=== PATIENT | female | born 1990 | race African-American/Black ===

== ENCOUNTER 2016-11-15 22:33 | Emergency (ER) | payer OTHER ==
[2016-11-16] MEDS ORDERED: PHENAZOPYRIDINE 100 MG TAB As Ordered ONE (02:02)
[2016-11-16] MEDS ORDERED: NITROFURANTOIN (MACROBID) 100 MG CAP As Ordered ONE (02:02)
[2016-11-16] MEDS ORDERED: IBUPROFEN 600 MG TAB As Ordered ONE (02:02)
--- NOTE | 2016-11-16 02:13 | EDDOCDS ---
Physician Documentation [facility] Name: Harvey Domingo Age: 26 yrs Sex: Female : 1990 Arrival Date: 11/15/2016 Time: 22:33 Bed I2 / M2 Private MD: Other - Complete Info On Cds Disposition: 11/16/16 02:08 Discharged to Home/Self Care. Impression: Urinary tract infection, site not specified. - Condition is Stable. - Discharge Instructions: Urinary Tract Infection. - Prescriptions for Pyridium 200 mg Oral Tablet - take 1 tablet by ORAL route every 8 hours for 3 days; 9 tablet. Macrobid 100 mg Oral Capsule - take 100 milligram by ORAL route every 12 hours for 10 days; 20 capsule. - Medication Reconciliation, Local Pharmacy Hours form. - Follow up: Private Physician; When: 1 - 2 days; Reason: Recheck today's complaints, Continuance of care. - Problem is new. - Symptoms have improved. - Notes: USE MEDICATIONS INSTRUCTED, FOLLOW UP WITH YOUR DOCTOR IN 1-2 DAYS, RETURN TO THE ER IF THE SYMPTOMS WORSEN OR BECOME CONCERNING Historical: - Allergies: no known allergies; - Home Meds: 1. none - PMHx: none; - PSHx: Ovarian Cystectomy- Left; - Social history: Smoking status: Patient states was never smoker of tobacco. No barriers to communication noted, The patient speaks fluent Sierra Leonean, Speaks appropriately for age. - Family history: Not pertinent. - : The pt / caregiver states he / she is not on anticoagulants. Home medication list is obtained from the patient. - Exposure Risk Screening:: None identified. 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 5 in. (165.10 cm) (R); Pain 6/10; 11/16 02:08 BP 120 / 78; Pulse 90; Resp 18; Temp 99.0(O); Pulse Ox 98% on R/A; Pain 2/10; jmb 11/15 22:35 Body Mass Index 22.46 (61.23 kg, 165.10 cm) gr2 MDM: 01:12 UCG by Nursing ordered. jmb 01:12 UA Ordered. EDMS 01:12 Urine Culture Ordered. EDMS 01:55 UA Reviewed. ck7 02:00 Nitrofurantoin 100 mg PO once ordered. ck7 02:00 Phenazopyridine 200 mg PO once ordered. ck7 02:00 Ibuprofen 600 mg PO once ordered. ck7 02:07 Financial registration complete. hs2 Point of Care Testing: Urine : 01:25 hCG Reading: Negative; Control Reading: Positive; sergey Ranges: Administered Medications: 02:04 Drug: Nitrofurantoin 100 mg [nitrofurantoin macrocrystal 50 mg capsule (2 caps)] Route: jmb PO; 02:04 Drug: Phenazopyridine 200 mg [phenazopyridine 100 mg tablet (2 tabs)] Route: PO; sergey 02:04 Drug: Ibuprofen 600 mg [ibuprofen 600 mg tablet (1 tabs)] Route: PO; sergey Signatures: Dispatcher [employer] Marilyn Garcia,RN Mauri Baker, RPA-C RPA-Cck7 Zoran Espinoza RN RN jmb Stanton, Hillary, Reg Reg hs2 MTDD
--- NOTE | 2016-11-16 02:14 | EDDOCDS ---
Nurse's Notes [facility] Name: Harvey Domingo Age: 26 yrs Sex: Female : 1990 Arrival Date: 11/15/2016 Time: 22:33 Bed I2 / M2 Private MD: Other - Complete Info On Cds Diagnosis: Urinary tract infection, site not specified Presentation: 11/15 22:38 Presenting complaint: Patient states: abdominal pain since yesterday. denies n/v/d. pml suprapubic pain - reports pain with urination. Risk factors: the patient reports no vaginal bleeding. Adult Sepsis Screening: The patient does not have new or worsening altered mentation. Patient's respiratory rate is less than 22. Systolic blood pressure is greater than 100. Patient has a qSOFA score of. Suicide/Homicide risk assessment- the patient denies having any suicidal and/or homicidal ideations and does not present with any other emotional, behavioral or mental health complaints. Status: The patient is a dependent. Transition of care: patient was not received from another setting of care. 22:38 Acuity: ARISTIDES Level 4 pml 22:38 Method Of Arrival: Walkin/Carried/Asstd pml Triage Assessment: 22:40 General: Appears in no apparent distress, Behavior is appropriate for age, cooperative. pml Pain: Location: suprapubic area Pain currently is 10 out of 10 on a pain scale. Pt Declines HIV testing. 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 none - PMHx: none; - PSHx: Ovarian Cystectomy- Left; - Social history: Smoking status: Patient states was never smoker of tobacco. No barriers to communication noted, The patient speaks fluent Armenian, Speaks appropriately for age. - Family history: Not pertinent. - : The pt / caregiver states he / she is not on anticoagulants. Home medication list is obtained from the patient. - Exposure Risk Screening:: None identified. Screenin/17 01:25 Screening information is obtained from the patient. Fall risk: No risks identified. jmb Assistance ADL's: requires no assistance with activities of daily living. Abuse/DV Screen: The patient / caregiver reports he/she is: not in a situation that causes fear, pain or injury. Nutritional screening: No deficits noted. home support is adequate. 02:08 Advance Directives: Currently, there is no health care proxy. There is no active DNR jmb order. There is no living will. There is no Power of Atmospheric Sciences Professor. Assessment: 01:25 General: Appears in no apparent distress, comfortable, Behavior is appropriate for age, jmb cooperative. Neurological: Level of Consciousness is awake, alert, obeys commands, Oriented to person, place, time, Mini Shifter are equal bilaterally Speech is normal, Facial symmetry appears normal, Facial symmetry: tongue is midline. Cardiovascular: Capillary refill < 3 seconds Heart tones present Pulses are all present. Rhythm is regular. Respiratory: Airway is patent Respiratory effort is even, unlabored, Respiratory pattern is regular, symmetrical, Breath sounds are clear bilaterally. GI: Abdomen is non- distended Bowel sounds present X 4 quads. Abd is soft X 4 quads. Derm: Skin is normal. Musculoskeletal: Range of motion intact in all extremities. 02:08 General: Patient instructed on discharge instructions. Patient asked if there were any b questions regarding discharge, patient stated no. Patient signed discharge instructions. Patient discharged in stable condition. . Vital Signs: 11/15 22:35 BP 116 / 73; Pulse 95; Resp 18 S; Temp 99.1(O); Pulse Ox 98% on R/A; Weight 61.23 kg gr2 (R); Height 5 ft. 5 in. (165.10 cm) (R); Pain 6/10; 11/16 02:08 BP 120 / 78; Pulse 90; Resp 18; Temp 99.0(O); Pulse Ox 98% on R/A; Pain 2/10; jmb 11/15 22:35 Body Mass Index 22.46 (61.23 kg, 165.10 cm) gr2 Vitals: 11/15 22:35 Log In Time: November 15, 2016 at 22:35. gr2 ED Course: 22:35 Patient visited by Jose Fuentes. gr2 22:35 Other - Complete Info On Cds is Private Physician. gr2 22:35 Patient moved to Waiting gr2 22:37 Patient visited by Jose Fuentes. gr2 22:37 Patient moved to Pre RCE gr2 22:39 Triage Initiated pml 22:40 Patient visited by Marilyn Moran RN. pml 11/16 01:09 Patient moved to I2 / M2 jmb 01:10 Patient visited by Edith Wang LPN. cp1 01:23 Urine Culture Sent. jmb 01:23 UA Sent. jmb 01:25 The patient / caregiver is instructed regarding the plan of care and ED course. jmb 01:26 Patient visited by Zoran Espinoza RN. jmb 01:36 Mauri Tello RPA-C is PHCP. ck7 01:36 Edison Stoll DO is Attending Physician. ck7 01:36 Patient visited by Mauri Tello RPA-C. ck7 02:08 No IV's were initiated during this patient's visit. No procedures done that require b assistance. Administered Medications: 02:04 Drug: Nitrofurantoin 100 mg [nitrofurantoin macrocrystal 50 mg capsule (2 caps)] Route: jmb PO; 02:04 Drug: Phenazopyridine 200 mg [phenazopyridine 100 mg tablet (2 tabs)] Route: PO; b 02:04 Drug: Ibuprofen 600 mg [ibuprofen 600 mg tablet (1 tabs)] Route: PO; [place] Point of Care Testing: Urine : 01:25 hCG Reading: Negative; Control Reading: Positive; [place] Ranges: Order Results: Lab Order: UA; SPEC'M 11/16/16 01:17 Test: APPEARANCE, URINE; Value: HAZY; Range: CLEAR; Status: F Test: COLOR, URINE; Value: YELLOW; Range: YELLOW; Status: F Test: PH,URINE; Value: 5.0; Range: 5.0-9.0; Units: UNITS; Status: F Test: SPECIFIC GRAVITY URINE AUTO; Value: 1.023; Range: 1.002-1.035; Status: F Test: PROTEIN, URINE AUTO; Value: NEGATIVE; Range: NEGATIVE; Units: mg/dL; Status: F Test: GLUCOSE, URINE (UA) AUTO; Value: NEGATIVE; Range: NEGATIVE; Units: mg/dL; Status: F Test: KETONE, URINE AUTO; Value: 1+; Range: NEGATIVE; Abnormal: Above high normal; Units: mg/dL; Status: F Test: UROBILINOGEN, URINE AUTO; Value: 0.2; Range: 0.0-2.0; Units: mg/dL; Status: F Test: BILIRUBIN, URINE AUTO; Value: NEGATIVE; Range: NEGATIVE; Status: F Test: NITRITE, URINE AUTO; Value: NEGATIVE; Range: NEGATIVE; Status: F Test: LEUKOCYTE ESTERASE, URINE AUTO; Value: 3+; Range: NEGATIVE; Abnormal: Above high normal; Status: F Test: BLOOD, URINE BLOOD; Value: NEGATIVE; Range: NEGATIVE; Status: F Test: WBC, URINE AUTO; Value: 19; Range: 0-3; Abnormal: Above high normal; Units: /HPF; Status: F Test: RBC, URINE AUTO; Value: 6; Range: 0-3; Abnormal: Above high normal; Units: /HPF; Status: F Test: BACTERIA, URINE AUTO; Value: NEGATIVE; Range: NEGATIVE; Status: F Test: SQUAMOUS EPITHELIAL CELL UR AU; Value: 6; Range: 0-6; Units: /HPF; Status: F Test: MUCUS, URINE; Value: LARGE; Range: NEGATIVE; Status: F Test: HYALINE CAST, URINE AUTO; Value: 0; Range: 0-1; Units: /LPF; Status: F Outcome: 02:08 Discharge ordered by Provider. ck7 02:08 Discharge Assessment: Patient awake, alert and oriented x 3. No cognitive and/or jmb functional deficits noted. Patient verbalized understanding of disposition instructions. Patient awake and alert. obeys commands, Oriented to person, place and time. Patient verbalized understanding of disposition instructions. Patient has no functional deficits. patient administered narcotics - no. The following High Risk Discharge criteria are identified: None. Discharged to home ambulatory, with significant other. Condition: stable. Discharge instructions given to patient, Instructed on discharge instructions, follow up and referral plans. medication usage, Demonstrated understanding of instructions, medications, Pt was receptive of discharge instructions/ teaching. Prescriptions given X 1. No special radiology studies were completed. Property sent home with patient. 02:12 Patient left the ED. sergey Signatures: Edith Wang LPN LPN cp1 Marilyn Moran,RN RN Mauri Draper, RPA-C RPA-Cck7 Jose Fuentes gr2 Zoran Espinoza RN RN jmb MTDD
--- NOTE | 2016-11-18 03:13 | EDDOCDS ---
Physician Documentation [facility] Name: Harvey Domingo Age: 26 yrs Sex: Female : 1990 Arrival Date: 11/15/2016 Time: 22:33 Bed I2 / M2 Private MD: Other - Complete Info On Cds Disposition: 11/16/16 02:08 Discharged to Home/Self Care. Impression: Urinary tract infection, site not specified. - Condition is Stable. - Discharge Instructions: Urinary Tract Infection. - Prescriptions for Pyridium 200 mg Oral Tablet - take 1 tablet by ORAL route every 8 hours for 3 days; 9 tablet. Macrobid 100 mg Oral Capsule - take 100 milligram by ORAL route every 12 hours for 10 days; 20 capsule. - Medication Reconciliation, Local Pharmacy Hours form. - Follow up: Private Physician; When: 1 - 2 days; Reason: Recheck today's complaints, Continuance of care. - Problem is new. - Symptoms have improved. - Notes: USE MEDICATIONS INSTRUCTED, FOLLOW UP WITH YOUR DOCTOR IN 1-2 DAYS, RETURN TO THE ER IF THE SYMPTOMS WORSEN OR BECOME CONCERNING Historical: - Allergies: no known allergies; - Home Meds: 1. none - PMHx: none; - PSHx: Ovarian Cystectomy- Left; - Social history: Smoking status: Patient states was never smoker of tobacco. No barriers to communication noted, The patient speaks fluent Palestinian, Speaks appropriately for age. - Family history: Not pertinent. - : The pt / caregiver states he / she is not on anticoagulants. Home medication list is obtained from the patient. - Exposure Risk Screening:: None identified. 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 5 in. (165.10 cm) (R); Pain 6/10; 11/16 02:08 BP 120 / 78; Pulse 90; Resp 18; Temp 99.0(O); Pulse Ox 98% on R/A; Pain 2/10; jmb 11/15 22:35 Body Mass Index 22.46 (61.23 kg, 165.10 cm) gr2 MDM: 01:12 UCG by Nursing ordered. jmb 01:12 UA Ordered. EDMS 01:12 Urine Culture Ordered. EDMS 01:55 UA Reviewed. ck7 02:00 Nitrofurantoin 100 mg PO once ordered. ck7 02:00 Phenazopyridine 200 mg PO once ordered. ck7 02:00 Ibuprofen 600 mg PO once ordered. ck7 02:07 Financial registration complete. hs2 03:44 [facility] Payment Agreement was scanned into [employer] and attached to record. hs2 09:55 T-Sheet-- Draft Copy was scanned into [employer] and attached to record. bry Point of Care Testing: Urine : 01:25 hCG Reading: Negative; Control Reading: Positive; sergey Ranges: Administered Medications: 02:04 Drug: Nitrofurantoin 100 mg [nitrofurantoin macrocrystal 50 mg capsule (2 caps)] Route: jmb PO; 02:04 Drug: Phenazopyridine 200 mg [phenazopyridine 100 mg tablet (2 tabs)] Route: PO; sergey 02:04 Drug: Ibuprofen 600 mg [ibuprofen 600 mg tablet (1 tabs)] Route: PO; sergey Signatures: Dispatcher [employer] EDMS Glenda Weiner, Reg Reg gb Marilyn Moran,RN Mauri Baker RPA-C RPA-Cck7 Zoran Espinoza RN RN jmb Romy Mathis, Reg Reg hs2 The chart was reviewed and I authenticate all verbal orders and agree with the evaluation and treatment provided.Attachments: 03:44 [facility] Payment Agreement hs2 09:55 T-Sheet-- Draft Copy gb Chart Complete MTDD
--- NOTE | 2016-11-18 03:13 | EDDOCDS ---
Nurse's Notes [facility] Name: Harvey Domingo Age: 26 yrs Sex: Female : 1990 Arrival Date: 11/15/2016 Time: 22:33 Bed I2 / M2 Private MD: Other - Complete Info On Cds Diagnosis: Urinary tract infection, site not specified Presentation: 11/15 22:38 Presenting complaint: Patient states: abdominal pain since yesterday. denies n/v/d. pml suprapubic pain - reports pain with urination. Risk factors: the patient reports no vaginal bleeding. Adult Sepsis Screening: The patient does not have new or worsening altered mentation. Patient's respiratory rate is less than 22. Systolic blood pressure is greater than 100. Patient has a qSOFA score of. Suicide/Homicide risk assessment- the patient denies having any suicidal and/or homicidal ideations and does not present with any other emotional, behavioral or mental health complaints. Status: The patient is a dependent. Transition of care: patient was not received from another setting of care. 22:38 Acuity: ARISTIDES Level 4 pml 22:38 Method Of Arrival: Walkin/Carried/Asstd pml Triage Assessment: 22:40 General: Appears in no apparent distress, Behavior is appropriate for age, cooperative. pml Pain: Location: suprapubic area Pain currently is 10 out of 10 on a pain scale. Pt Declines HIV testing. 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 none - PMHx: none; - PSHx: Ovarian Cystectomy- Left; - Social history: Smoking status: Patient states was never smoker of tobacco. No barriers to communication noted, The patient speaks fluent Setswana, Speaks appropriately for age. - Family history: Not pertinent. - : The pt / caregiver states he / she is not on anticoagulants. Home medication list is obtained from the patient. - Exposure Risk Screening:: None identified. Screenin/17 01:25 Screening information is obtained from the patient. Fall risk: No risks identified. jmb Assistance ADL's: requires no assistance with activities of daily living. Abuse/DV Screen: The patient / caregiver reports he/she is: not in a situation that causes fear, pain or injury. Nutritional screening: No deficits noted. home support is adequate. 02:08 Advance Directives: Currently, there is no health care proxy. There is no active DNR jmb order. There is no living will. There is no Power of Call Centre Supervisor. Assessment: 01:25 General: Appears in no apparent distress, comfortable, Behavior is appropriate for age, jmb cooperative. Neurological: Level of Consciousness is awake, alert, obeys commands, Oriented to person, place, time, Swimming Teacher are equal bilaterally Speech is normal, Facial symmetry appears normal, Facial symmetry: tongue is midline. Cardiovascular: Capillary refill < 3 seconds Heart tones present Pulses are all present. Rhythm is regular. Respiratory: Airway is patent Respiratory effort is even, unlabored, Respiratory pattern is regular, symmetrical, Breath sounds are clear bilaterally. GI: Abdomen is non- distended Bowel sounds present X 4 quads. Abd is soft X 4 quads. Derm: Skin is normal. Musculoskeletal: Range of motion intact in all extremities. 02:08 General: Patient instructed on discharge instructions. Patient asked if there were any b questions regarding discharge, patient stated no. Patient signed discharge instructions. Patient discharged in stable condition. . Vital Signs: 11/15 22:35 BP 116 / 73; Pulse 95; Resp 18 S; Temp 99.1(O); Pulse Ox 98% on R/A; Weight 61.23 kg gr2 (R); Height 5 ft. 5 in. (165.10 cm) (R); Pain 6/10; 11/16 02:08 BP 120 / 78; Pulse 90; Resp 18; Temp 99.0(O); Pulse Ox 98% on R/A; Pain 2/10; jmb 11/15 22:35 Body Mass Index 22.46 (61.23 kg, 165.10 cm) gr2 Vitals: 11/15 22:35 Log In Time: November 15, 2016 at 22:35. gr2 ED Course: 22:35 Patient visited by Jose Fuentes. gr2 22:35 Other - Complete Info On Cds is Private Physician. gr2 22:35 Patient moved to Waiting gr2 22:37 Patient visited by Jose Fuentes. gr2 22:37 Patient moved to Pre RCE gr2 22:39 Triage Initiated pml 22:40 Patient visited by Marilyn Moran RN. pml 11/16 01:09 Patient moved to I2 / M2 jmb 01:10 Patient visited by Edith Wang LPN. cp1 01:23 Urine Culture Sent. jmb 01:23 UA Sent. jmb 01:25 The patient / caregiver is instructed regarding the plan of care and ED course. jmb 01:26 Patient visited by Zoran Espinoza RN. jmb 01:36 Mauri Tello RPA-C is PHCP. ck7 01:36 Edison Stoll DO is Attending Physician. ck7 01:36 Patient visited by Mauri Tello RPA-C. ck7 02:08 No IV's were initiated during this patient's visit. No procedures done that require jmb assistance. 03:44 [facility] [place] was scanned into [employer] and attached to record. hs2 03:45 Patient visited by Romy Mathis, Reg. hs2 03:49 Patient name changed from Nykia\S\L\S\Jose L\S\ to Nykia\S\Erika\S\Jose L. EDMS 09:55 T-Sheet-- Draft Copy was scanned into [employer] and attached to record. gb Administered Medications: 02:04 Drug: Nitrofurantoin 100 mg [nitrofurantoin macrocrystal 50 mg capsule (2 caps)] Route: jmb PO; 02:04 Drug: Phenazopyridine 200 mg [phenazopyridine 100 mg tablet (2 tabs)] Route: PO; jmb 02:04 Drug: Ibuprofen 600 mg [ibuprofen 600 mg tablet (1 tabs)] Route: PO; b Point of Care Testing: Urine : 01:25 hCG Reading: Negative; Control Reading: Positive; b Ranges: Order Results: Lab Order: UA; SPEC'M 11/16/16 01:17 Test: APPEARANCE, URINE; Value: HAZY; Range: CLEAR; Status: F Test: COLOR, URINE; Value: YELLOW; Range: YELLOW; Status: F Test: PH,URINE; Value: 5.0; Range: 5.0-9.0; Units: UNITS; Status: F Test: SPECIFIC GRAVITY URINE AUTO; Value: 1.023; Range: 1.002-1.035; Status: F Test: PROTEIN, URINE AUTO; Value: NEGATIVE; Range: NEGATIVE; Units: mg/dL; Status: F Test: GLUCOSE, URINE (UA) AUTO; Value: NEGATIVE; Range: NEGATIVE; Units: mg/dL; Status: F Test: KETONE, URINE AUTO; Value: 1+; Range: NEGATIVE; Abnormal: Above high normal; Units: mg/dL; Status: F Test: UROBILINOGEN, URINE AUTO; Value: 0.2; Range: 0.0-2.0; Units: mg/dL; Status: F Test: BILIRUBIN, URINE AUTO; Value: NEGATIVE; Range: NEGATIVE; Status: F Test: NITRITE, URINE AUTO; Value: NEGATIVE; Range: NEGATIVE; Status: F Test: LEUKOCYTE ESTERASE, URINE AUTO; Value: 3+; Range: NEGATIVE; Abnormal: Above high normal; Status: F Test: BLOOD, URINE BLOOD; Value: NEGATIVE; Range: NEGATIVE; Status: F Test: WBC, URINE AUTO; Value: 19; Range: 0-3; Abnormal: Above high normal; Units: /HPF; Status: F Test: RBC, URINE AUTO; Value: 6; Range: 0-3; Abnormal: Above high normal; Units: /HPF; Status: F Test: BACTERIA, URINE AUTO; Value: NEGATIVE; Range: NEGATIVE; Status: F Test: SQUAMOUS EPITHELIAL CELL UR AU; Value: 6; Range: 0-6; Units: /HPF; Status: F Test: MUCUS, URINE; Value: LARGE; Range: NEGATIVE; Status: F Test: HYALINE CAST, URINE AUTO; Value: 0; Range: 0-1; Units: /LPF; Status: F Lab Order: Urine Culture; SPEC'M 11/16/16 01:17 Test: URINE CULTURE; Value: URINE CULTURE RESULT; Status: F Test: URINE CULTURE; Value: NO GROWTH CLINICAL SIGNIFICANCE 2 OR MORE ORGANISMS; Status: F Outcome: 02:08 Discharge ordered by Provider. ck7 02:08 Discharge Assessment: Patient awake, alert and oriented x 3. No cognitive and/or jmb functional deficits noted. Patient verbalized understanding of disposition instructions. Patient awake and alert. obeys commands, Oriented to person, place and time. Patient verbalized understanding of disposition instructions. Patient has no functional deficits. patient administered narcotics - no. The following High Risk Discharge criteria are identified: None. Discharged to home ambulatory, with significant other. Condition: stable. Discharge instructions given to patient, Instructed on discharge instructions, follow up and referral plans. medication usage, Demonstrated understanding of instructions, medications, Pt was receptive of discharge instructions/ teaching. Prescriptions given X 1. No special radiology studies were completed. Property sent home with patient. 02:12 Patient left the ED. sergey Signatures: Dispatcher [employer] EDMS Glenda Weiner, Reg Reg gb Edith Wang LPN LPN cp1 Marilyn Moran,RN RN Mauri Draper, RPA-C RPA-Cck7 Jose Fuentes gr2 Zoran Espinoza RN RN jmb Stanton, Hillary, Reg Reg hs2 Chart Complete MTDD
--- NOTE | 2016-11-18 03:13 | EDDOCDS ---
Physician Documentation [facility] Name: Harvey Domingo Age: 26 yrs Sex: Female : 1990 Arrival Date: 11/15/2016 Time: 22:33 Bed I2 / M2 Private MD: Other - Complete Info On Cds Disposition: 11/16/16 02:08 Discharged to Home/Self Care. Impression: Urinary tract infection, site not specified. - Condition is Stable. - Discharge Instructions: Urinary Tract Infection. - Prescriptions for Pyridium 200 mg Oral Tablet - take 1 tablet by ORAL route every 8 hours for 3 days; 9 tablet. Macrobid 100 mg Oral Capsule - take 100 milligram by ORAL route every 12 hours for 10 days; 20 capsule. - Medication Reconciliation, Local Pharmacy Hours form. - Follow up: Private Physician; When: 1 - 2 days; Reason: Recheck today's complaints, Continuance of care. - Problem is new. - Symptoms have improved. - Notes: USE MEDICATIONS INSTRUCTED, FOLLOW UP WITH YOUR DOCTOR IN 1-2 DAYS, RETURN TO THE ER IF THE SYMPTOMS WORSEN OR BECOME CONCERNING Historical: - Allergies: no known allergies; - Home Meds: 1. none - PMHx: none; - PSHx: Ovarian Cystectomy- Left; - Social history: Smoking status: Patient states was never smoker of tobacco. No barriers to communication noted, The patient speaks fluent [place]an, Speaks appropriately for age. - Family history: Not pertinent. - : The pt / caregiver states he / she is not on anticoagulants. Home medication list is obtained from the patient. - Exposure Risk Screening:: None identified. 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 5 in. (165.10 cm) (R); Pain 6/10; 11/16 02:08 BP 120 / 78; Pulse 90; Resp 18; Temp 99.0(O); Pulse Ox 98% on R/A; Pain 2/10; jmb 11/15 22:35 Body Mass Index 22.46 (61.23 kg, 165.10 cm) gr2 MDM: 01:12 UCG by Nursing ordered. jmb 01:12 UA Ordered. EDMS 01:12 Urine Culture Ordered. EDMS 01:55 UA Reviewed. ck7 02:00 Nitrofurantoin 100 mg PO once ordered. ck7 02:00 Phenazopyridine 200 mg PO once ordered. ck7 02:00 Ibuprofen 600 mg PO once ordered. ck7 02:07 Financial registration complete. hs2 03:44 [facility] Payment Agreement was scanned into [id number] and attached to record. hs2 09:55 T-Sheet-- Draft Copy was scanned into [id number] and attached to record. bry Point of Care Testing: Urine : 01:25 hCG Reading: Negative; Control Reading: Positive; sergey Ranges: Administered Medications: 02:04 Drug: Nitrofurantoin 100 mg [nitrofurantoin macrocrystal 50 mg capsule (2 caps)] Route: jmb PO; 02:04 Drug: Phenazopyridine 200 mg [phenazopyridine 100 mg tablet (2 tabs)] Route: PO; sergey 02:04 Drug: Ibuprofen 600 mg [ibuprofen 600 mg tablet (1 tabs)] Route: PO; sergey Signatures: Dispatcher [employer] EDMS Glenda Weiner, Reg Reg gb Marilyn Moran,RN Mauri Baker RPA-C [id number] Zoran Espinoza RN RN jmb Romy Mathis, Reg Reg hs2 The chart was reviewed and I authenticate all verbal orders and agree with the evaluation and treatment provided.Attachments: 03:44 [facility] Payment Agreement hs2 09:55 T-Sheet-- Draft Copy gb Chart Complete MTDD
== END 2016-11-16 02:12 | disposition home or self-care (01) ==
LOC: M ED 22:33
DX: N39.0 Urinary tract infection, site not specified (principal)

== ENCOUNTER 2017-07-06 14:15 | Outpatient (CLI) | payer OTHER ==
[~2017-07-06] VITALS: Ht 165.1 cm; Wt 65.0 kg
[2017-07-06 14:29] VITALS: BP 101/65
[2017-07-06] MEDS ORDERED: PRENTAB9 PO (14:37)
[2017-07-06] MEDS ORDERED: metroNIDAZOLE (FLAGYL) 500 MG TAB PO ONE (16:45)
[2017-08-30] MEDS ORDERED: IRON65TA PO (16:49)
== END 2017-07-06 17:00 | disposition home or self-care (01) ==
LOC: M LDO 14:15
PROVIDERS: ATTEND Obstetrics & Gynecology
DX: O26.892 Other specified pregnancy related conditions, second trimester (principal); R10.30 Lower abdominal pain, unspecified; O30.042 Twin pregnancy, dichorionic/diamniotic, second trimester; Z3A.27 27 weeks gestation of pregnancy

== ENCOUNTER → 2017-09-13 | Outpatient (CLI) | payer OTHER ==
[~2017-09-13] MED LIST: IRON65TA PO; PRENTAB9 PO
--- NOTE | 2017-09-13 15:49 | REP ---
Clinical: Advanced twin gestation. Estimated weight and well-being. Comparison: Report dated . Findings: Examination demonstrates known advanced diamniotic dichorionic twin gestation with placenta identified anterior and grade III for twin A and posterior and grade III for twin B without evidence for placenta previa or abruption. Concordant growth is noted. Gestational age by LMP 37 weeks 3 days with estimated date of delivery 10/01/2017 . TWIN A: Twin A identified in cephalic presentation along the maternal left side. motion is appreciated. Amniotic fluid volume is normal and the deepest pocket measures 2.4 cm cm. Gestational age by current measurements 35 weeks 2 days. FHR equals 136 beats per minute. Estimated weight 2534 grams ( 15 percentile). ------- TWIN B: Twin B identified in cephalic presentation along the maternal right side. motion is appreciated. Amniotic fluid volume is normal and the deepest pocket measures 3.1 cm. Gestational age by current measurements 34 weeks 6 days. FHR equals 139 beats per minute. Estimated weight 2492 grams ( 13 percentile). Impression: Advanced diamniotic dichorionic twin gestation as described above. Estimated weight are concordant and within normal limits. Signed by Maury Castro MD 09/13/2017 03:41 P
== END ==
LOC: M RAD 13:48
PROVIDERS: ATTEND Student in an Organized Health Care Education/Training Program
DX: O30.043 Twin pregnancy, dichorionic/diamniotic, third trimester (principal); Z3A.35 35 weeks gestation of pregnancy

== ENCOUNTER 2017-09-17 07:02 | Inpatient (IN) | payer OTHER ==
[2017-09-17] VITALS (43 sets, daily range): BP systolic 103–155; BP diastolic 56–91
[~2017-09-17] VITALS: Ht 165.1 cm; Wt 72.6 kg
[2017-09-17] MEDS ORDERED: LR 1,000 ML IV SCH (10:05)
[2017-09-17 10:08] LABS: MEAN CORPUSCULAR HEMOGLOBIN 28.8 pg (27.0-33.0); MEAN CORPUSCULAR HGB CONC 33.9 g/dl (32.0-36.5); PLATELET COUNT, AUTOMATED 204 10^3/uL (150-450); RED CELL DISTRIBUTION WIDTH 15.2 % (11.5-14.5); WHITE BLOOD COUNT 6.8 10^3/uL (4.0-10.0)
[2017-09-17] MEDS ORDERED: LACTATED RINGER'S 1000 ML IV ONE (10:15)
[2017-09-17] MEDS ORDERED: OXYTOCIN DRIP 30 UNITS in APPROPRIATE DILUENT 1 EA IV SCH (10:15)
[2017-09-17] MEDS ORDERED: FENTANYL 2MCG/ML ROPIVACAINE 0.2% IN 0.9% NACL 200ML IVBAG As Ordered ONE (19:21)
[2017-09-17] MEDS ORDERED: FENTANYL/ROPIVACAINE/NACL BAG 200 ML EPIDURAL SCH (19:57)
[2017-09-17] MEDS ORDERED: EPIDURAL/PCA KEYS XX PRN (19:57)
[2017-09-17] MEDS ORDERED: REFRIGERATOR IV KEYS XX PRN (19:57)
[2017-09-17] MEDS ORDERED: NALOXONE INJ 0.4 MG/1 ML VIAL (J2310) IV PRN (19:57)
[2017-09-17] MEDS ORDERED: ePHEDrine SULFATE 25 MG/5 ML(5MG/ML) SYRINGE IV PRN (19:57)
[2017-09-17] MEDS ORDERED: EPIDURAL COMMENT XX SCH (19:57)
[2017-09-17] MEDS ORDERED: LACTATED RINGER'S 1000 ML IV PRN (19:57)
[2017-09-17] MEDS ORDERED: diphenhydrAMINE INJ 50MG/ML VIAL (J1200) IV PRN (19:57)
[2017-09-17] MEDS: ONDANSETRON 4MG/2ML VIAL (J2405) IV PRN (20:30)
[2017-09-17] MEDS ORDERED: ONDANSETRON 4MG/2ML VIAL (J2405) As Ordered ONE (20:35)
--- NOTE | 2017-09-17 22:40 | HPE ---
DATE OF ADMISSION: 09/17/2017 HISTORY OF PRESENT ILLNESS: This lady is a 26-year-old 2, para 0, last menstrual period (LMP) is December 25, 2016. Estimated date of confinement (EDC) is October 01, 2017. She is at 38 and three weeks of gestation for induction of labor because of dichorionic diamniotic (Di-Di) twins, vertex-vertex presenting. Past history is 2010, at eight weeks spontaneous . No dilation and curettage (D and C). She has no other risk factors. LABORATORY DATA: Laboratories show A positive, HIV negative, hepatitis negative, RPR negative, rubella immune. Pap normal. Urine negative. Gonorrhea and chlamydia negative, GBS negative. 1-hour glucose was 91. PHYSICAL EXAMINATION: On physical examination, she is in no acute distress. Symphysis fundus height is 44. Twin A vertex presenting 2-3 cm posterior, 60% effaced, -3 station. Category one strip. Twin B category one strip, vertex presenting. Blood pressure 116/85, respirations are 18, pulse 76, temperature 98.8. Urine is 1.010, pH seven, negative, negative, negative. Ultrasound report shows twin A as vertex on the maternal left. Amniotic fluid is within normal limits. heart rate is 136 beats per minute, estimated weight is 2534 grams. Twin B is vertex presenting on the mother's right. motion is appreciated. Amniotic fluid is within normal limits. heart rate 139 beats per minute and the estimated weight is 2492 grams. Our plan of management is to use Pitocin as a method of induction of labor at the appropriate interval. Have an epidural in place with Werner catheter. Notify neonatology to be in attendance at delivery. The rest of the examination is unremarkable. She is normocephalic, atraumatic. Neck full range of motion. Pupils equal and reactive to light. Distal pulses symmetric. No evidence of deep venous thrombosis (DVT), pulmonary embolism (PE) or superficial phlebitis. Lungs are clear bilaterally bases. No wheezes or rhonchi. No costovertebral angle tenderness. Four quadrant bowel sounds are noted. The patient is just tender all over because of large abdomen. She is a small person. She has no rashes, lesions or pruritus, nor arthralgia or myalgia. No complaints of cough, wheezes, shortness of breath or dyspnea on exertion. No chest pain. Not bleeding. Neuro complete. No incontinence, urgency or frequency. No nausea, vomiting, diarrhea or constipation. No diabetic issues. 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 Her family history is noncontributory. She does not smoke, drink, abuse drugs. 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 No domestic violence. In summary, we have a 38 and three weeks of gestation for induction of labor of Di-Di twins vertex, vertex, appropriate growth, category one strip times two.
[2017-09-18] VITALS (17 sets, daily range): BP systolic 107–137; BP diastolic 65–82
[2017-09-18] MEDS: ONDANSETRON 4MG/2ML VIAL (J2405) IV PRN (02:00)
[2017-09-18 03:05] LABS: CORD GAS ABE A -4.2; CORD GAS ABE V -7.6; CORD GAS HCO3 A 21.3 MEQ/L; CORD GAS HCO3 V 17.5 MEQ/L; CORD GAS O2 SAT A 59.8 %; CORD GAS O2 SAT V 60.4 %; CORD GAS PCO2 A 40.4 mmHg; CORD GAS PCO2 V 34.9 mmHg; CORD GAS PH A 7.339 UNITS; CORD GAS PH V 7.319 UNITS; CORD GAS PO2 A 25.4 mmHg; CORD GAS PO2 V 27.8 mmHg; CORD GAS SBC A 20.1 MEQ/L; CORD GAS SBC V 17.6 MEQ/L; CORD GAS TCO2 A 22.5 MEQ/L; CORD GAS TCO2 V 18.6 MEQ/L
[2017-09-18 05:00] LABS: CORD GAS ABE A -0.8; CORD GAS HCO3 A 26.1 MEQ/L; CORD GAS O2 SAT A 34.4 %; CORD GAS PCO2 A 52.1 mmHg; CORD GAS PH A 7.318 UNITS; CORD GAS SBC A 22.3 MEQ/L; CORD GAS TCO2 A 27.7 MEQ/L
[2017-09-18 05:00] LABS: CORD GAS ABE V -5.2; CORD GAS O2 SAT V 71.3 %; CORD GAS PCO2 V 28.8 mmHg; CORD GAS PH V 7.413 UNITS; CORD GAS SBC V 19.7 MEQ/L; CORD GAS TCO2 V 18.9 MEQ/L
[2017-09-18] MEDS ORDERED: DOCUSATE SODIUM 100 MG CAP PO PRN (06:15)
[2017-09-18] MEDS ORDERED: ANUSOL HC CREAM 30GM TOP PRN (06:15)
[2017-09-18] MEDS ORDERED: MEASLES,MUMPS,RUBELLA VACCINE INJ (MMR-II) (90707) SC SCH (06:15)
[2017-09-18] MEDS ORDERED: MOM 30ML SUSPENSION UDC PO PRN (06:15)
[2017-09-18] MEDS ORDERED: RHOGAM 300 MCG (1500 IU) INJ (J2790) IM SCH (06:15)
[2017-09-18] MEDS ORDERED: DIBUCAINE 1% OINTMENT 30GM TOP PRN (06:15)
[2017-09-18] MEDS ORDERED: METHYLERGONOVINE MALEATE 0.2 MG TAB PO PRN (06:15)
[2017-09-18] MEDS: PRENATAL VITAMINS CHEWABLE TABLET PO SCH (08:19)
[2017-09-18] MEDS: IBUPROFEN 800 MG TAB PO PRN ×2 (08:22→19:54)
[2017-09-18] MEDS: ACETAMINOPHEN 500 MG TAB PO PRN (12:44)
--- NOTE | 2017-09-18 19:54 | DN ---
DATE: 09/18/2017 This lady is a 2, para 0 admitted at 38 and 3 weeks of gestation with di/di twins for induction of labor. Pitocin was started and at the appropriate interval epidural was placed, and AROM was done draining clear liquor. Vertex presentation. She delivered spontaneous vaginal delivery. Twin A male 5 pounds 4 ounces, 2590 grams, scores of 8 and 10 at 1 and 5 minutes, respectively. Arterial pH 7.33, base excess -4.2, venous pH 7.31, base excess -7.6. She continued to have prodromal contractions, and increased the Pitocin to 18 milliunits per minute and at full dilatation she pushed out in the POP position a live female weighing 5 pounds 15 ounces, 2690 grams, scores of 8 and 9 at 1 and 5 minutes, respectively. Arterial pH 7.31, base excess -0.8, venous pH 7.41, base excess -5.2. Both placentas delivered spontaneously thereafter. Three vessels in each cord. Uterus contracted well down on Pitocin. The patient sustained a first-degree tear which was oversewn in the usual fashion with instrument and pad count correct. Examination of the pelvis showed no evidence of trauma to the bladder, the rectum or the lateral lopez. Sphincter was intact and perineum was intact and the patient and babies left the unit in good condition. SUZANNA
[2017-09-19] MEDS: IBUPROFEN 800 MG TAB PO PRN ×4 (05:50→22:38)
[2017-09-19 06:14] VITALS: BP 116/68
[2017-09-19 08:56] LABS: MEAN CORPUSCULAR HGB CONC 34.3 g/dl (32.0-36.5); MEAN CORPUSCULAR VOLUME 84.4 fl (80.0-96.0); PLATELET COUNT, AUTOMATED 167 10^3/uL (150-450)
[2017-09-19] MEDS: PRENATAL VITAMINS CHEWABLE TABLET PO SCH (09:15)
[2017-09-19] MEDS: ACETAMINOPHEN 500 MG TAB PO PRN (09:15)
[2017-09-19 18:08] VITALS: BP 144/82
[2017-09-20 06:00] VITALS: BP 126/60
--- NOTE | 2017-09-20 09:10 | IPNPDOC ---
Progress Note Date of Service The patient was seen on 09/20/17 at 09:07. Progress Note Progress Note Harvey is a 26y/o [id number] doing well on PPD#2 after uncomplicated of di- di twins at 38w3d. She is ambulating/voiding/tolerating regular diet with no issues. Denies F/C/N/V/SOB/CP. Lochia minimal and well. She is having pain related to hemorrhoid- thinks the proctofoam she is using may be causing "blistering", otherwise doing well. O: VSS/AF. 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 Vitals wnl, benign exam. Meeting all milestones and desiring discharge. Hemodynamically stable with no evidence of infection. Plan: -Discharge to home with routine 6wk PP visit -discussed return precautions -has home meds to take after discharge: tylenol, motrin, colace, lanolin, epifoam -undecided regarding contraception, will discuss at PP visit Dr. Haley Michele MD VS, I&O, 24H, Fishbone Vital Signs/I&O Vital Signs Date Time Temp Pulse Resp B/P (MAP) Pulse Ox O2 Delivery O2 Flow Rate FiO2 09/20/17 06:00 98.4 51 16 126/60 (82) 97 Room Air Haley Michele MD Sep 20, 2017 09:10
[2017-09-20] MEDS: PRENATAL VITAMINS CHEWABLE TABLET PO SCH (09:26)
[2017-09-20] MEDS ORDERED: IBUP-1114 PO (10:31)
[2017-09-20] MEDS ORDERED: ANUS2.5C2 TOP (10:31)
[2017-09-20] MEDS ORDERED: COLA100C5 PO (10:31)
[2017-09-20] MEDS ORDERED: ACET50TA PO (10:31)
--- NOTE | 2017-09-21 13:54 | IPN ---
DATE: 09/18/2017 This patient and have requested circumcision of twin A male infant. After discussing risks and benefits of circumcision, the medical and nonmedical indications, penile block, aftercare and complications, they expressed understanding. All questions were answered, signed and witnessed the consent form. We await the clearance by the application defense manager.
== END 2017-09-20 12:40 | disposition home or self-care (01) | DRG 775 ==
LOC: M LDI 07:02 → M OBS 09-18 10:29
PROVIDERS: ADMIT Student in an Organized Health Care Education/Training Program; ATTEND Obstetrics & Gynecology
PROC: 3E033VJ Introduction of Other Hormone into Peripheral Vein, Percutaneous Approach (ICD-10-PCS; 2017-09-17)
PROC: 10E0XZZ Delivery of Products of Conception, External Approach (ICD-10-PCS; principal; 2017-09-18)
PROC: 0HQ9XZZ Repair Perineum Skin, External Approach (ICD-10-PCS; 2017-09-18)
PROC: 10907ZC Drainage of Amniotic Fluid, Therapeutic from Products of Conception, Via Natural or Artificial Opening (ICD-10-PCS; 2017-09-18)
DX: O30.043 Twin pregnancy, dichorionic/diamniotic, third trimester (principal); O22.43 Hemorrhoids in pregnancy, third trimester; Z3A.38 38 weeks gestation of pregnancy; O70.0 First degree perineal laceration during delivery; Z37.2 Twins, both liveborn

== ENCOUNTER 2017-11-28 06:19 | Day surgery (SDC) | payer OTHER ==
[2017-11-28] MEDS: ONDANSETRON 4 MG ORAL DISINTEGRATING TAB (S0181) PO (07:30)
[2017-11-28] MEDS: ACETAMINOPHEN 325 MG TAB PO (07:30)
[2017-11-28 07:46] LABS: BASO % 0.3 % (0.0-1.0); EOS % 0.2 % (0.0-3.0); HEMATOCRIT 33.9 % (36.0-47.0); HEMOGLOBIN 11.5 g/dl (12.0-16.0); IMMATURE GRANULOCYTE # 0.1 10^3/uL (0-0); IMMATURE GRANULOCYTE % 0.5 % (0-0); LYMPH # 1.1 10^3/uL (1.5-6.5); LYMPH % 8.2 % (24.0-44.0); MEAN CORPUSCULAR HEMOGLOBIN 27.9 pg (27.0-33.0); MEAN CORPUSCULAR HGB CONC 33.9 g/dl (32.0-36.5); MEAN CORPUSCULAR VOLUME 82.3 fl (80.0-96.0); MONO # 0.9 10^3/uL (0.0-0.8); MONO % 6.7 % (0.0-5.0); NEUTROPHILS % 84.1 % (36.0-66.0); PLATELET COUNT, AUTOMATED 245 10^3/uL (150-450); RED BLOOD COUNT 4.12 10^6/uL (4.00-5.40); RED CELL DISTRIBUTION WIDTH 12.9 % (11.5-14.5)
[2017-11-28 08:06] LABS: ALBUMIN 3.7 GM/DL (3.2-5.2); ALBUMIN/GLOBULIN RATIO 0.93 (1.00-1.93); ALKALINE PHOSPHATASE 90 U/L (45-117); ALT/SGPT 21 U/L (12-78); ANION GAP 6 MEQ/L (8-16); AST/SGOT 15 U/L (7-37); BILIRUBIN,DIRECT < 0.1 MG/DL (0.0-0.2); BILIRUBIN,TOTAL 0.4 MG/DL (0.2-1.0); BLOOD UREA NITROGEN 12 MG/DL (7-18); CARBON DIOXIDE LEVEL 26 MEQ/L (21-32); CHLORIDE LEVEL 108 MEQ/L (98-107); CREATININE FOR GFR 0.58 MG/DL (0.55-1.02); GLOMERULAR FILTRATION RATE > 60.0 (>60); GLUCOSE, FASTING 99 MG/DL (70-100); LIPASE 99 U/L (73-393); POTASSIUM SERUM 3.8 MEQ/L (3.5-5.1); SODIUM LEVEL 140 MEQ/L (136-145); TOTAL PROTEIN 7.7 GM/DL (6.4-8.2)
[2017-11-28 08:25] LABS: CONTROL LINE UCG INT CTR LINE PRESENT; URINE PREG TEST NEGATIVE (NEGATIVE)
[2017-11-28 08:30] LABS: KETONE, URINE AUTO RFX NEGATIVE (NEGATIVE); LEUKOCYTE ESTERASE UR AUTO RFX NEGATIVE (NEGATIVE); MUCUS, URINE RFX SMALL (NEGATIVE); NITRITE, URINE AUTO RFX NEGATIVE (NEGATIVE); RBC, URINE AUTO RFX 1 /HPF (0-3); SPECIFIC GRAVITY UR AUTO RFX 1.016 (1.002-1.035); SQUAM EPITHELIAL CELL UR AURFX 0 /HPF (0-6); WBC, URINE AUTO RFX 3 /HPF (0-3)
[2017-11-28] MEDS ORDERED: ISOVUE-370 76% 100ML VIAL (Q9967) As Ordered (08:41)
[2017-11-28] MEDS: AMPICILLIN SOD/SULBACTAM SOD 3 GM in D5W MINI-BAG PLUS 100 ML IV ×2 (09:59→15:58)
[2017-11-28] MEDS ORDERED: fentaNYL 100 MCG/2 ML INJECTION (J3010) As Ordered ×2 (12:07→12:44)
[2017-11-28] MEDS ORDERED: ONDANSETRON 4MG/2ML VIAL (J2405) As Ordered (12:10)
[2017-11-28] MEDS ORDERED: KETOROLAC 60 MG/2 ML VIAL (J1885) As Ordered (12:10)
[2017-11-28] MEDS ORDERED: NEOSTIGMINE 10 MG/10 ML VIAL (J2710) (12:16)
[2017-11-28] MEDS ORDERED: NEOSTIGMINE 10 MG/10 ML VIAL (J2710) As Ordered (12:16)
[2017-11-28] MEDS ORDERED: GLYCOPYRROLATE INJ 0.2 MG/ML 2 ML VIAL As Ordered ×2 (12:17)
[2017-11-28] MEDS: BUPIVACAINE HCL 0.25% 30 ML VIAL As Ordered (12:25)
[2017-11-28] MEDS: LIDOCAINE 1% SDV INJ 30 ML VIAL As Ordered (12:25)
[2017-11-28] MEDS ORDERED: ROCURONIUM BROMIDE 50 MG/5 ML VIAL As Ordered (12:44)
[2017-11-28] MEDS ORDERED: LIDOCAINE 2% INJ 100 MG/5 ML SDV (FOR ANES.) As Ordered (12:44)
[2017-11-28] MEDS ORDERED: PROPOFOL 200 MG/20 ML VIAL As Ordered (12:44)
[2017-11-28] MEDS ORDERED: NORCO, ANEXSIA 5/325MG TABLET (HYDROcodone/ACETAMINOPHEN) PO (12:45)
[2017-11-28] MEDS ORDERED: ACETAMINOPHEN TAB 650MG DOSE (2X325MG) PO (12:45)
[2017-11-28] MEDS ORDERED: KETOROLAC 30 MG/ML VIAL (J1885) IV (12:45)
[2017-11-28] MEDS ORDERED: MORPHINE 2 MG/ML 1ML SYRINGE IV (12:45)
[2017-11-28] MEDS ORDERED: ONDANSETRON 4MG/2ML VIAL (J2405) IV ×2 (12:45→13:15)
[2017-11-28] MEDS ORDERED: MIDAZOLAM INJ 2 MG/2 ML VIAL (J2250) As Ordered (12:46)
[2017-11-28] MEDS ORDERED: PERCOCET 5MG/325MG TAB PO (13:15)
[2017-11-28] MEDS ORDERED: fentaNYL 100 MCG/2 ML INJECTION (J3010) IV (13:15)
[2017-11-28] MEDS ORDERED: HYDROmorphone HCL 1 MG/ML SYRINGE (J1170) IV (13:15)
[2017-11-28] MEDS ORDERED: METOCLOPRAMIDE INJ 10MG/2ML VIAL (J2765) IV (13:15)
[2017-11-28] MEDS: LR 1,000 ML IV ×2 (13:50→14:02)
[2017-11-28] MEDS: NORCO, ANEXSIA 5/325MG TABLET (HYDROcodone/ACETAMINOPHEN) PO (19:14)
== END 2017-11-28 20:00 | disposition home or self-care (01) ==
LOC: M ED 06:19 → M SDC 10:00 → M PED 13:35 → M SDC 20:00
DX: K35.89 Other acute appendicitis (principal); D64.9 Anemia, unspecified
CPT/HCPCS: 44970

== ENCOUNTER → 2018-11-22 | Outpatient (CLI) | payer OTHER ==
[~2018-11-22] MED LIST changes: +ANUS2.5C2 TOP; +COLA100C5 PO; +IBUP-1114 PO; +MAPA500T2 PO; +NORCOTAB PO
[2018-11-22 13:47] LABS: FREE T4 0.87 NG/DL (0.76-1.46); THYROID STIMULATING HORMONE 1.72 uIU/ML (0.358-3.740)
== END ==
LOC: M LAB 12:18
PROVIDERS: ATTEND Otolaryngology
DX: H61.23 Impacted cerumen, bilateral (principal)